=== PATIENT | male | born 1980 | race Caucasian/White ===

== ENCOUNTER → 2024-06-27 11:25 | Outpatient (BNVA) | payer BC, SELFPAY | DX: J02.9 Acute pharyngitis, unspecified (principal) | CPT/HCPCS: 87071; 87880 ==

== ENCOUNTER 2024-07-27 11:02 | Emergency (ER) | payer BC, SELFPAY ==
--- NOTE | 2024-07-27 11:06 | XR_ITS ---
WS: [id number] Exam: XR chest 1V portable [id number] Date/Time of Exam: 07/27/2024 11:08 AM Reason For Exam: dyspnea/cough Comparison 01/05/2012. Lungs are clear and fully inflated. Normal cardiomediastinal silhouette and regional bony elements. Very slight thoracic dextroscoliosis. XR/XR chest 1V portable [id number] IMPRESSION: 1. Negative chest.
[2024-07-27 11:08] VITALS: BP 152/101; PULSE 66; RESP 16; TEMP 36.8; O2SAT 99; BMI 21.7
--- NOTE | 2024-07-27 11:08 | ECG_ITS ---
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 Measurements Intervals [place] Rate: 55 P: 76 CT: 167 QRS: 76 QRSD: 99 T: 60 QT: 398 QTc: 383 Interpretive Statements SINUS BRADYCARDIA Compared to ECG 02/24/2018 09:39:15 Prolonged QT interval no longer present Electronically Signed On 07-28-2024 17:52:22 [employer]IG[employer] by Ok Chacon M.D. [email or web address]
[2024-07-27 11:21] LABS: Basophils # 0.1 10^3/uL (0.0-0.1); Basophils % 0.6 %; Eosinophils # 0.3 10^3/uL (0.0-0.8); Eosinophils % 3.8 %; Hematocrit 44.3 % (37-53); Lymphocytes # 1.9 10^3/uL (0.8-4.8); Lymphocytes % 21.5 %; Mean Corpuscular HGB Conc 34.3 g/dL (30-55); Mean Corpuscular Hemoglobin 30.2 pg (27-33); Mean Corpuscular Volume 87.9 fl (82-101); Mean Platelet Volume 10.1 fL (7.4-10.4); Monocytes # 0.6 10^3/uL (0.2-0.9); Monocytes % 6.3 %; Neutrophils # 5.89 10^3/uL (1.8-7.7); Neutrophils % 67.6 %; Nucleated Red Blood Cells % 0 %; Platelet Count 199 10^3/cmm (157-399); Red Blood Count 5.04 10^6/uL (3.85-5.65); Red Cell Distribution Width 12.3 % (12.1-15.1); White Blood Count 8.71 10^3/uL (3.29-11.43)
--- NOTE | 2024-07-27 11:33 | W.ED.CHESTPA ---
HPI - Chest Pain General: Chief Complaint: Chest Pain Stated Complaint: chest pain Time Seen by Provider: 07/27/24 11:06 History of Present Illness: 43-year-old male presents emergency room clinic chest pain for the last 4 weeks. It has been constant for the last 3 weeks. He is not particular notes anything that makes it better or worse he also has had some pain rating from his neck down across the trapezius muscle into the shoulder into the upper arm he is not does anything that exacerbates or relieves that is not associated with the chest pain there is no associated diaphoresis shortness of breath. Is not noticed any positional changes worsening any exertional worsening of where anything he eats or drinks worsening or improving it Associated symptoms: Deny abdominal pain, dyspnea or fever(s) Related Data Home Medications ?Medication ?Instructions ?Recorded ?Confirmed lisinopril 20 mg tablet 20 mg PO QPM 11/14/23 07/27/24 aspirin 325 mg tablet (Tiff 325 mg PO DAILY 07/27/24 07/27/24 Aspirin) loratadine 10 mg tablet 10 mg PO DAILY 07/27/24 07/27/24 Allergies Allergy/AdvReac Type Severity Reaction Status Date / Time No Known Allergies Allergy Verified 07/27/24 11:10 Review of Systems Const: Denies: fever(s) or chills Card: Reports: chest pain (X 4 weeks) Resp: Denies: dyspnea GI: Denies: abdominal pain : Denies: dysuria, urinary frequency or urinary urgency Musc: Denies: neck pain or back pain Skin/Breast: Denies: rash [facility] PFSH: Medical History Psychiatric care Social History Smoking and tobacco/nicotine status: never used tobacco/nicotine Physical Exam Const: COMMON NORMALS: no acute distress GENERAL APPEARANCE: cooperative and comfortable ORIENTATION/CONSCIOUSNESS: Yes awake, Yes oriented to person, Yes oriented to place and Yes oriented to time HENMT: COMMON NORMALS: normocephalic, atraumatic and hearing grossly normal bilaterally HEAD & SCALP: normocephalic and atraumatic Resp: COMMON NORMALS: normal respiratory effort, No retractions, No use of accessory muscles and clear to auscultation bilaterally AUSCULTATION: clear to auscultation bilaterally Cardio: COMMON NORMALS: regular rate, regular rhythm and No murmurs present (Cardio) RATE: regular rate RHYTHM: regular rhythm GI: COMMON NORMALS: Soft to palpation and No hepatosplenomegaly present AUSCULTATION: Yes normoactive bowel sounds PALPATION: Yes Soft to palpation, No Tenderness to palpation present (GI), No Guarding due to palpation present (GI) and Yes No hepatosplenomegaly present Extremity: COMMON NORMALS: normal to inspection, capillary refill normal, no clubbing, cyanosis or edema, no calf tenderness and no pedal edema Neuro: SENSORIUM/ORIENTATION: Yes oriented to person, Yes oriented to place and Yes oriented to time Skin: COMMON NORMALS: no rashes or lesions noted GENERAL SKIN EXAM: no rashes or lesions noted Course Vital Signs: Vital signs: Vital Signs Temperature 98.2 F 07/27/24 11:08 Pulse Rate 88 07/27/24 12:29 Respiratory Rate 16 07/27/24 11:08 Blood Pressure 158/97 07/27/24 12:29 Pulse Oximetry 98 07/27/24 12:29 Oxygen Delivery Me thod Room Air 07/27/24 11:08 MDM - Chest Pain Medical Decision Making Exam normal. Considered pneumonia pneumothorax aortic dissection acute coronary syndrome or pneumonia. Chest x-ray does not show any widening of mediastinum D-dimer negative there is no hypoxia no sign of acute coronary syndrome on troponins or EKG Differential Diagnosis Likely acute massive pulmonary embolism and acute myocardial infarction Medical Records I reviewed the patient's medical records. Lab Data I reviewed the patient's lab results. 07/27/24 11:17 07/27/24 11:17 Radiology Impressions Chest X-Ray 07/27/24 11:06 IMPRESSION: 1. Negative chest. Laboratory Results WBC 8.71 10^3/uL (3.29-11.43) 07/27/24 11:17 RBC 5.04 10^6/uL (3.85-5.65) 07/27/24 11:17 Hgb 15.20 g/dL (11.27-16.99) 07/27/24 11:17 Hct 44.3 % (37-53) 07/27/24 11:17 MCV 87.9 fl (82-101) 07/27/24 11:17 MCH 30.2 pg (27-33) 07/27/24 11:17 MCHC 34.3 g/dL (30-55) 07/27/24 11:17 RDW 12.3 % (12.1-15.1) 07/27/24 11:17 Plt Count 199 10^3/cmm (157-399) 07/27/24 11:17 MPV 10.1 fL (7.4-10.4) 07/27/24 11:17 Neut % (Auto) 67.6 % 07/27/24 11:17 Lymph % (Auto) 21.5 % 07/27/24 11:17 Nobles % (Auto) 6.3 % 07/27/24 11:17 Eos % (Auto) 3.8 % 07/27/24 11:17 Baso % (Auto) 0.6 % 07/27/24 11:17 Neut # (Auto) 5.89 10^3/uL (1.8-7.7) 07/27/24 11:17 Lymph # (Auto) 1.9 10^3/uL (0.8-4.8) 07/27/24 11:17 Nobles # (Auto) 0.6 10^3/uL (0.2-0.9) 07/27/24 11:17 Eos # (Auto) 0.3 10^3/uL (0.0-0.8) 07/27/24 11:17 Baso # (Auto) 0.1 10^3/uL (0.0-0.1) 07/27/24 11:17 Nucleated RBC % (auto) 0 % 07/27/24 11:17 Nucleated RBCs # 0.0 /100WBC 07/27/24 11:17 D-Dimer 0.28 ug/mLFEU (0-0.59) 07/27/24 11:17 Sodium 137 mmol/L (136-145) 07/27/24 11:17 Potassium 4.7 mmol/L (3.5-5.1) 07/27/24 11:17 Chloride 98 mmol/L (98-107) 07/27/24 11:17 Carbon Dioxide 26 mmol/L (22-29) 07/27/24 11:17 Anion Gap 17.7 (5-19) 07/27/24 11:17 BUN 11 mg/dL (6-20) 07/27/24 11:17 Creatinine 0.7 mg/dL (0.7-1.2) 07/27/24 11:17 GFR Calculation 122.0 mL/min (90-130) 07/27/24 11:17 Glucose 126 mg/dL (65-115) H 07/27/24 11:17 Calculated Osmolality 285 mOsm/kg (285-295) 07/27/24 11:17 Calcium 9.8 mg/dL (8.5-10.5) 07/27/24 11:17 Total Bilirubin 0.5 mg/dL (0.15-1.2) 07/27/24 11:17 AST 25 U/L (0-40) 07/27/24 11:17 ALT 19 U/L (0-41) 07/27/24 11:17 Alkaline Phosphatase 95 U/L (40-130) 07/27/24 11:17 Troponin T Baseline < 6 ng/L (0-15) 07/27/24 11:17 Total Protein 7.2 g/dL (6.6-8.7) 07/27/24 11:17 Albumin 4.6 g/dL (3.5-5.2) 07/27/24 11:17 Globulin 2.6 g/dL (1.3-4.6) 07/27/24 11:17 All radiology interpretation(s) finalized by discharge Discharge Plan Discharge Patient Disposition: Home Clinical Impression: Atypical chest pain Condition: Stable Prescriptions: No Action lisinopril 20 mg tablet 20 mg PO QPM aspirin [Tiff Aspirin] 325 mg Tablet 325 mg PO DAILY loratadine 10 mg tablet 10 mg PO DAILY Discharge Orders: Discharge ED (Routine); Ordered 07/27/24 Ordered By: Andres James Discharge Diet: Usual diet Discharge Activity: Increase activity as tolerated Patient Instructions: Opioid Safety, Pain Management Activity Restrictions/Additional Instructions: Thank you for choosing [facility] for your healthcare needs today. It is very important that you follow up as instructed or that you return to the Emergency Department should you have concerns or if your condition changes or worsens in any way. You were seen emergency room with chest pain you have had for the last 4 weeks. Your chest x-ray looks normal there is no sign of expanding of the mediastinum that would indicate a aneurysm. Cardiac enzymes and EKG did not show anything acute indicating heart attack there is no pneumothorax or pneumonia on your chest x-ray and your vital signs show no signs of a pulmonary embolism your D-dimer was negative. Recommend you follow-up with your primary care doctor this is likely a noncardiac cause of chest discomfort. Recommend starting on Prilosec [id number] 20 mg twice a day. Print Language: Italian Coding Level of Care Code ED Ammunition Comp[employer] Inspector for Saul Esteban
[2024-07-27 11:49] LABS: Troponin(5th) Baseline < 6 ng/L (0-15)
[2024-07-27 11:50] LABS: Alanine Aminotransferase 19 U/L (0-41); Albumin Level 4.6 g/dL (3.5-5.2); Alkaline Phosphatase 95 U/L (40-130); Anion Gap 17.7 (5-19); Aspartate Amino Transferase 25 U/L (0-40); Blood Urea Nitrogen 11 mg/dL (6-20); Calcium 9.8 mg/dL (8.5-10.5); Carbon Dioxide 26 mmol/L (22-29); Chloride 98 mmol/L (98-107); Creatinine Clr Calc Pharmacy 146.7923; Globulin 2.6 g/dL (1.3-4.6); Glucose 126 mg/dL (65-115); Osmolality Calculated 285 mOsm/kg (285-295); Potassium 4.7 mmol/L (3.5-5.1); Sodium 137 mmol/L (136-145); Total Bilirubin 0.5 mg/dL (0.15-1.2); Total Protein 7.2 g/dL (6.6-8.7)
[2024-07-27 12:11] LABS: D Dimer 0.28 ug/mLFEU (0-0.59)
[2024-07-27 12:29] VITALS: BP 158/97; PULSE 88; O2SAT 98
== END 2024-07-27 12:29 | disposition home or self-care (01) ==
PROVIDERS: Emergency Provider Family Medicine
DX: R07.89 Other chest pain (principal); Z79.82 Long term (current) use of aspirin
CPT/HCPCS: 36415; 71045; 80053; 84484; 85025; 85378; 93005; 99285